=== PATIENT | female | born 1980 | race Caucasian/White ===

== ENCOUNTER 2018-03-28 23:53 | Observation (INO) ==
[2018-03-29] MEDS ORDERED: Isovue-370 500 ML INFUS..BTL IV ONE (03:13)
[2018-03-29] MEDS ORDERED: 0.9 % Sodium Chloride 1,000 ML IVC ONE (03:13)
[2018-03-29] MEDS ORDERED: Ondansetron 4 MG/2 ML VIAL IVP ONE (03:13)
[2018-03-29 03:41] LABS: Bilirubin,Urine Negative (Negative); Blood,Urine Negative (Negative); Clarity,Urine Clear (Clear); Color,Urine Yellow (Yellow); Glucose,Urine (UA) Normal (Normal); Ketones,Urine 15 mg/dL (Negative); Leukocyte Esterase,Urine Negative (Negative); Nitrite,Urine Negative (Negative); PH,Urine 5.5 pH Units (5.0-8.0); Protein,Urine 30 mg/dL (Neg-Trace); Specific Gravity,Urine 1.028 (1.010-1.025); Urobilinogen,Urine Normal (Normal)
[2018-03-29 03:44] LABS: Bacteria,Urine Few per hpf (None-Few); Hyaline Casts,Urine None Seen per lpf (None-Few); RBC,Urine 0-3 per hpf (0-3); Squamous Epithelial Cell,Urine Many per lpf (None-Few); WBC,Urine 0-3 per hpf (0-3)
[2018-03-29] MEDS ORDERED: *HR* Promethazine 25 MG/ML VIAL IVP ONE (03:50)
[2018-03-29 04:07] LABS: Basophils % 0.3 %; Eosinophils # 0.3 K/mcL (0.0-0.6); Eosinophils % 1.9 %; Hematocrit 44.6 % (35.3-44.9); Hemoglobin 15.3 g/dL (11.5-15.4); Immature Granulocytes % 0.2 % (0-4); Lymphocytes # 1.7 K/mcL (0.6-4.6); Lymphocytes % 12.4 %; Mean Corpuscular HGB Conc 34.3 g/dL (31.6-35.5); Mean Corpuscular Hemoglobin 29.5 pg (28.0-33.3); Mean Corpuscular Volume 85.9 fL (83.0-100.0); Mean Platelet Volume 10.5 fL (9.4-12.4); Monocytes # 0.9 K/mcL (0.0-1.3); Monocytes % 6.3 %; Neutrophils # 10.6 K/mcL (1.6-8.9); Platelet Count 279 K/mcL (140-400); Red Blood Count 5.19 M/mcL (3.82-4.97); Red Cell Distribution Width 12.5 % (11.5-14.5); Segmented Neutrophils % 78.9 %
[2018-03-29 04:19] LABS: Alanine Aminotransferase 16 Units/L (7-52); Albumin 4.2 g/dL (3.5-5.7); Albumin/Globulin Ratio 1.4 (1.1-2.2); Alkaline Phosphatase 102 Units/L (34-104); Aspartate Amino Transferase 18 Units/L (13-39); BUN/Creatinine Ratio 14 (6-26); Bilirubin,Total 0.4 mg/dL (0.3-1.0); Blood Urea Nitrogen 10 mg/dL (6-20); Calcium 9.3 mg/dL (8.6-10.3); Carbon Dioxide 25 mEq/L (23-29); Chloride 104 mEq/L (98-107); Glucose 111 mg/dL (70-105); Lipase 30 Units/L (11-82); Osmolality,Calculated 284 (280-300); Potassium 4.2 mEq/L (3.5-5.1); Sodium 137 mEq/L (136-145); Total Protein 7.2 g/dL (6.4-8.9); eGFR For African Americans > 60 (> 60); eGFR For Non-African Americans > 60 (> 60)
--- NOTE | 2018-03-29 04:25 | Emergency Department Note ---
Disposition Clinical Impression: Dehydration Intractable nausea and vomiting Qualifiers: Vomiting type: cyclical vomiting Qualified Code(s): G43.A1 - Cyclical vomiting , intractable Disposition: Admitted As Inpatient Condition: Fair Referrals: Vimal Jaime [Primary Care Provider] - Forms: ED Satisfaction Letter Time of Disposition: 06:57 Nausea/Vomiting/Diarrhea HPI - General Chief complaint: ED Nausea/Vomiting/Diarrhea Stated complaint: N/V Time Seen by Provider: 03/29/18 02:48 Source: patient Limitations: no limitations Nursing Notes Reviewed: Yes Vital Signs Reviewed: Yes - History of Present Illness HPI Narrative: Patient is a 37-year-old female who presents to [facility] ED with a chief complaint of intractable nausea vomiting. Patient has also had some diarrhea over the course of several months. She is currently being worked up by her primary care physician and getting testing done for possible lactose intolerance. States the nausea and vomiting has been ongoing intermittently for the last several weeks and she was prescribed Zofran. However it has not been helping. Today she has not been able to stop vomiting. Pt Subjective Complaint: nausea, vomiting, diarrhea Onset (ago): week(s) Associated Abdominal Pain: No Associated symptoms: Reports: nausea/vomiting. Denies: chest pain, cough, fever /chills, headaches, shortness of breath, weakness - Related Data Home Medications Medication Instructions Recorded Confirmed Estrogens, Conjugated [Premarin] 1.25 mg PO HS 03/29/18 03/29/18 Venlafaxine HCl [Venlafaxine HCl 150 mg PO 03/29/18 03/29/18 ER] Venlafaxine [Effexor] 200 mg PO HS 03/29/18 03/29/18 Ziprasidone HCl [Ziprasidone HCl] 20 mg PO HS 03/29/18 03/29/18 clonazePAM [Klonopin] 0.5 mg PO HS 03/29/18 03/29/18 Allergies Allergy/AdvReac Type Severity Reaction Status Date / Time Penicillins Allergy SWELLING Verified 03/29/18 06:56 prednisone Allergy SWELLING Verified 03/29/18 06:56 All systems ED: reviewed and negative except as stated. Past Medical History - Past Medical History Attestation: Yes The following information was validated with the patient. Source: patient Medical history: Reports: non-contributory, other Psychiatric history: Reports: anxiety, bipolar, depression - Social History Smoking Status: Never smoker Smokeless Tobacco Status: No Alcohol use: Reports: none Drug use: Reports: none Physical Exam - General Limitations: no limitations General appearance: alert - Head Head exam: atraumatic, normocephalic, normal inspection - Eye Eye exam: Present: normal appearance, PERRL, EOMI - ENT ENT exam: normal exam, normal oropharynx, mucous membranes moist - Neck Neck exam: Present: normal inspection, full ROM, trachea midline - Chest Chest inspection: Present: normal inspection, symmetric chest wall rise - Respiratory Respiratory exam: Present: normal lung sounds bilaterally - Cardiovascular Cardiovascular exam: Present: normal rhythm, tachycardia, normal heart sounds - Abdominal Exam Abdominal exam: Present: soft, Non-Tender. Absent: tenderness, distention, guarding, rebound, rigidity - Extremities Exam Extremities exam: Present: normal inspection, full ROM. Absent: tenderness, pedal edema - Back Exam Back exam: Present: normal inspection, full ROM. Absent: tenderness - Neurological Exam Neurological exam: Present: alert, oriented X3 - Psychiatric Psychiatric exam: Present: normal affect, normal mood - Skin Skin exam: Present: warm, dry, intact, normal color Course Course Narrative: Patient seen and examined. Intractable nausea and vomiting. Patient has tried Zofran at home. This has not been helping. We will try some Phenergan here. We will also get some basic lab work and CT abdomen and pelvis to rule out any abdominal pathology. - Reevaluation(s) Reevaluation #1: Patient's lab work shows signs of concentrated urine suggesting some mild dehydration. Her lab work otherwise shows a mild leukocytosis. Otherwise unremarkable. Patient still feeling extremely nauseated. She was given a dose of Reglan and Benadryl to see if this helps. Time: 04:30 Reevaluation #2: Patient still complaining of nausea and is actively vomiting. We will get an EKG to rule out any signs of prolonged QT and then try Haldol. Time: 06:00 Reevaluation #3: Patient still feeling extremely nauseated. We will admit for intractable nausea and vomiting. Time: 06:31 Vital Signs Temperature 98.2 F 03/29/18 00:30 Pulse Rate 141 03/29/18 00:30 Respiratory Rate 18 03/29/18 00:30 Blood Pressure 144/97 03/29/18 00:30 O2 Sat by Pulse Oximetry 96 03/29/18 00:30 Temperature 98.2 F 03/29/18 00:30 Pulse Rate 102 03/29/18 04:26 Respiratory Rate 16 03/29/18 04:26 Blood Pressure 112/75 03/29/18 04:26 O2 Sat by Pulse Oximetry 97 03/29/18 04:26 Oxygen Delivery Oxygen Delivery Room Air Nausea/Vomiting/Diarrhea - Medical Records Medical records reviewed: Yes I reviewed the patient's medical records. - Lab Data Lab results reviewed: Yes I reviewed the patient's lab results. Result diagrams: 03/29/18 03:50 03/29/18 03:50 Lab Results 03/29/18 03/29/18 03/29/18 Range/Units 03:33 03:50 03:50 WBC 13.4 H (4.3-11.1) K/mcL RBC 5.19 H (3.82-4.97) M/mcL Hgb 15.3 (11.5-15.4) g/dL Hct 44.6 (35.3-44.9) % MCV 85.9 (83.0-100.0) fL MCH 29.5 (28.0-33.3) pg MCHC 34.3 (31.6-35.5) g/dL RDW 12.5 (11.5-14.5) % Plt Count 279 (140-400) K/mcL MPV 10.5 (9.4-12.4) fL Immature Gran % 0.2 (0-4) % Seg Neutrophils % 78.9 % Lymphocytes % 12.4 % Monocytes % 6.3 % Eosinophils % 1.9 % Basophils % 0.3 % Neutrophils # 10.6 H (1.6-8.9) K/mcL Lymphocytes # 1.7 (0.6-4.6) K/mcL Monocytes # 0.9 (0.0-1.3) K/mcL Eosinophils # 0.3 (0.0-0.6) K/mcL Basophils # 0.0 (0.0-0.2) K/mcL Sodium 137 (136-145) mEq/L Potassium 4.2 (3.5-5.1) mEq/L Chloride 104 (98-107) mEq/L Carbon Dioxide 25 (23-29) mEq/L BUN 10 (6-20) mg/dL Creatinine 0.73 (0.60-1.20) mg/dL Est GFR ( Amer) > 60 (> 60) Est GFR (Non-Af Amer) > 60 (> 60) BUN/Creatinine Ratio 14 (6-26) Glucose 111 H (70-105) mg/dL Calculated Osmolality 284 (280-300) Calcium 9.3 (8.6-10.3) mg/dL Total Bilirubin 0.4 (0.3-1.0) mg/dL AST 18 (13-39) Units/L ALT 16 (7-52) Units/L Alkaline Phosphatase 102 (34-104) Units/L Serum Total Protein 7.2 (6.4-8.9) g/dL Albumin 4.2 (3.5-5.7) g/dL Globulin 3.0 (2.4-3.5) g/dL Albumin/Globulin Ratio 1.4 (1.1-2.2) Lipase 30 (11-82) Units/L Urine Color Yellow (Yellow) Urine Clarity Clear (Clear) Urine pH 5.5 (5.0-8.0) pH Units Ur Specific [place] 1.028 H (1.010-1.025) Urine Protein 30 H (Neg-Trace) mg/dL Urine Glucose (UA) Normal (Normal) mg/dL Urine Ketones 15 H (Negative) mg/dL Urine Blood Negative (Negative) Urine Nitrite Negative (Negative) Urine Bilirubin Negative (Negative) Urine Urobilinogen Normal (Normal) mg/dL Ur Leukocyte Esterase Negative (Negative) Urine Microscopic RBC 0-3 (0-3) per hpf Urine Microscopic WBC 0-3 (0-3) per hpf Ur Squamous Epith Cells Many H (None-Few) per lpf Urine Bacteria Few (None-Few) per hpf Hyaline Casts None Seen (None-Few) per lpf Ur Culture Indicated? NO (NO) - Radiology Data Radiology results reviewed: Yes I reviewed the patient's radiology results. Abdomen/Pelvis CT 03/29/18 03:13 IMPRESSION: No acute process identified. D/ / Foster Tucker MD / Foster Tucker MD Interpreting Provider: Foster Tucker MD - EKG Data EKG attestation: Yes I reviewed and interpreted this EKG. EKG results narrative: EKG done at 605 shows sinus tachycardia with a rate of [address] elevation or depression noted. Left axis deviation. QTc interval at 404 ms.
[2018-03-29] MEDS ORDERED: Metoclopramide 10 MG/2 ML VIAL IVP ONE (04:26)
[2018-03-29] MEDS ORDERED: Haloperidol Lactate 5 MG/ML VIAL IVP ONE (06:07)
--- NOTE | 2018-03-29 07:03 | Emergency Department Note ---
Disposition Clinical Impression: Dehydration Intractable nausea and vomiting Qualifiers: Vomiting type: cyclical vomiting Qualified Code(s): G43.A1 - Cyclical vomiting , intractable Disposition: Admitted As Inpatient Condition: Fair Referrals: Vimal Jaime [Primary Care Provider] - Forms: ED Satisfaction Letter General Adult HPI - General Chief complaint: ED Nausea/Vomiting/Diarrhea Stated complaint: N/V Time Seen by Provider: 03/29/18 02:48 Source: patient Limitations: no limitations Nursing Notes Reviewed: Yes Vital Signs Reviewed: Yes - History of Present Illness Pain Scale: 5 - Related Data Home Medications Medication Instructions Recorded Confirmed Estrogens, Conjugated [Premarin] 1.25 mg PO HS 03/29/18 03/29/18 Venlafaxine HCl [Venlafaxine HCl 150 mg PO HS 03/29/18 03/29/18 ER] Venlafaxine [Effexor] 75 mg PO HS 03/29/18 03/29/18 Ziprasidone HCl [Ziprasidone HCl] 20 mg PO HS 03/29/18 03/29/18 clonazePAM [Klonopin] 0.5 mg PO HS 03/29/18 03/29/18 Allergies Allergy/AdvReac Type Severity Reaction Status Date / Time Penicillins Allergy SWELLING Verified 03/29/18 06:56 prednisone Allergy SWELLING Verified 03/29/18 06:56 Past Medical History - Past Medical History Medical history: Reports: non-contributory, other Psychiatric history: Reports: anxiety, bipolar, depression - Social History Smoking Status: Never smoker Smokeless Tobacco Status: No Alcohol use: Reports: none Drug use: Reports: none Physical Exam - General Limitations: no limitations General appearance: alert Course Vital Signs Temperature 98.2 F 03/29/18 00:30 Pulse Rate 141 03/29/18 00:30 Respiratory Rate 18 03/29/18 00:30 Blood Pressure 144/97 03/29/18 00:30 O2 Sat by Pulse Oximetry 96 03/29/18 00:30 Temperature 98.2 F 03/29/18 00:30 Pulse Rate 102 03/29/18 04:26 Respiratory Rate 16 03/29/18 04:26 Blood Pressure 112/75 03/29/18 04:26 O2 Sat by Pulse Oximetry 97 03/29/18 04:26 Oxygen Delivery Oxygen Delivery Room Air Medical Decision Making - Lab Data Result diagrams: 03/29/18 03:50 03/29/18 03:50 Lab Results 03/29/18 03/29/18 03/29/18 Range/Units 03:33 03:50 03:50 WBC 13.4 H (4.3-11.1) K/mcL RBC 5.19 H (3.82-4.97) M/mcL Hgb 15.3 (11.5-15.4) g/dL Hct 44.6 (35.3-44.9) % MCV 85.9 (83.0-100.0) fL MCH 29.5 (28.0-33.3) pg MCHC 34.3 (31.6-35.5) g/dL RDW 12.5 (11.5-14.5) % Plt Count 279 (140-400) K/mcL MPV 10.5 (9.4-12.4) fL Immature Gran % 0.2 (0-4) % Seg Neutrophils % 78.9 % Lymphocytes % 12.4 % Monocytes % 6.3 % Eosinophils % 1.9 % Basophils % 0.3 % Neutrophils # 10.6 H (1.6-8.9) K/mcL Lymphocytes # 1.7 (0.6-4.6) K/mcL Monocytes # 0.9 (0.0-1.3) K/mcL Eosinophils # 0.3 (0.0-0.6) K/mcL Basophils # 0.0 (0.0-0.2) K/mcL Sodium 137 (136-145) mEq/L Potassium 4.2 (3.5-5.1) mEq/L Chloride 104 (98-107) mEq/L Carbon Dioxide 25 (23-29) mEq/L BUN 10 (6-20) mg/dL Creatinine 0.73 (0.60-1.20) mg/dL Est GFR ( Amer) > 60 (> 60) Est GFR (Non-Af Amer) > 60 (> 60) BUN/Creatinine Ratio 14 (6-26) Glucose 111 H (70-105) mg/dL Calculated Osmolality 284 (280-300) Calcium 9.3 (8.6-10.3) mg/dL Total Bilirubin 0.4 (0.3-1.0) mg/dL AST 18 (13-39) Units/L ALT 16 (7-52) Units/L Alkaline Phosphatase 102 (34-104) Units/L Serum Total Protein 7.2 (6.4-8.9) g/dL Albumin 4.2 (3.5-5.7) g/dL Globulin 3.0 (2.4-3.5) g/dL Albumin/Globulin Ratio 1.4 (1.1-2.2) Lipase 30 (11-82) Units/L Urine Color Yellow (Yellow) Urine Clarity Clear (Clear) Urine pH 5.5 (5.0-8.0) pH Units Ur Specific [place] 1.028 H (1.010-1.025) Urine Protein 30 H (Neg-Trace) mg/dL Urine Glucose (UA) Normal (Normal) mg/dL Urine Ketones 15 H (Negative) mg/dL Urine Blood Negative (Negative) Urine Nitrite Negative (Negative) Urine Bilirubin Negative (Negative) Urine Urobilinogen Normal (Normal) mg/dL Ur Leukocyte Esterase Negative (Negative) Urine Microscopic RBC 0-3 (0-3) per hpf Urine Microscopic WBC 0-3 (0-3) per hpf Ur Squamous Epith Cells Many H (None-Few) per lpf Urine Bacteria Few (None-Few) per hpf Hyaline Casts None Seen (None-Few) per lpf Ur Culture Indicated? NO (NO) Attestation Statement - Attestation Attestation: I, Jordan Downs MD, personally evaluated this patient and discussed their management with the resident physician. I reviewed the resident's note and agree with the documented findings, medical decision making, and plan of care. 37-year-old female presents to the emergency department with a complaint of nausea vomiting and diarrhea that started more than a week ago. He nausea and vomiting resolved after a few days but the diarrhea has continued. Tonight the nausea and vomiting returned. She has tried Zofran with no relief. No GI bleed symptoms. On examination patient is a well-developed obese female in no acute distress. She is alert and oriented 3. There is no cyanosis or diaphoresis. Breath sounds are clear and equal bilaterally. Heart regular rate and rhythm. Abdomen is soft with minimal mid abdominal tenderness. Slightly increased bowel sounds. Labs reviewed and unremarkable. CT the abdomen and pelvis negative. Patient received IV fluids with IV Zofran, IV Phenergan, IV Benadryl, IV Reglan , and IV Haldol. She continued to have nausea and vomiting. The hospitalist, Dr. Carrillo, was consulted and accepted admission of the patient for intractable vomiting.
[2018-03-29 07:10] LABS: Amphetamine Screen,Urine Negative ng/mL (Cutoff=1000); Barbiturate Screen,Urine Negative ng/mL (Cutoff=200); Benzodiazepines Screen,Urine Negative ng/mL (Cutoff=200); Cannabinoid Screen,Urine Negative ng/mL (Cutoff = 50); Cocaine Screen,Urine Negative ng/mL (Cutoff= 300); Opiate Screen,Urine Negative ng/mL (Cutoff=300); Phencyclidine Screen,Urine Negative ng/mL (Cutoff=25)
[2018-03-29] MEDS: *HR* Promethazine 25 MG/ML VIAL IVP PRN ×2 (08:54→21:51)
[2018-03-29] MEDS ORDERED: 0.9 % Sodium Chloride 1,000 ML ONE (09:44)
[2018-03-29] MEDS: 0.9 % Sodium Chloride 1,000 ML IVC SCH ×2 (09:50→22:00)
[2018-03-29] MEDS ORDERED: Ibuprofen 800 MG TABLET PO PRN (09:55)
[2018-03-29 11:09] LABS: Thyroid Stimulating Hormone 0.774 mcIU/mL (0.340-5.600)
[2018-03-29] MEDS ORDERED: Polyethylene Glycol 3350 255 GM POWDER PO ONE (12:21)
--- NOTE | 2018-03-29 12:30 | Gastroenterology Consult Note ---
Date of Encounter: 03/30/18 Time of Encounter: 10:05 - Assessment and plan (1) Intractable nausea and vomiting Current Visit: Yes Status: Acute Assessment and plan: CT and labs were normal will proceed with EGD tomorrow to rule out PUD, gastroparesis or other causes of intractable nausea. Will add PPI, continue antiemetics. Qualifiers: Vomiting type: cyclical vomiting Qualified Code(s): G43.A1 - Cyclical vomiting, intractable (2) Diarrhea Current Visit: Yes Status: Acute Assessment and plan: Will check stool studies to rule out infectious origin, pancreatic insufficiency and IBD. Will also plan for colonoscopy tomorrow to rule out microcytic cause of diarrhea. Qualifiers: Diarrhea type: functional diarrhea Qualified Code(s): K59.1 - Functional diarrhea - Time Spent With Patient Total time spent is greater than 50% in coordination of care (as documented) at patient's floor/unit and/or counseling patient: GI History of Present Illness - Data of Consult Patient: new to practice Consult date: 03/29/18 Requesting Physician: Isauro Carrillo MD - Consult Narrative Reason for consult: nausea/vomiting diarrhea History of present illness: Ms Judd is a 37-year-old female presents to the emergency department with a complaint of nausea vomiting and diarrhea. She states diarrhea has been persistent for the past 4-5 months and she has had nausea the past month. She states she felt better for a few days but has gotten worse again. She has GI panel ordered as an outpatient but stool was formed at that time. She has tried Zofran with no relief. Labs were unremarkable. CT the abdomen and pelvis negative. Patient received IV fluids with IV Zofran, IV Phenergan, IV Benadryl, IV Reglan, and IV Haldol. She continued to have nausea and vomiting. The hospitalist, Dr. Carrillo, was consulted and accepted admission of the patient for intractable vomiting. She denies bloody or tarry stools. She denies fever but has chills. she denies GERD but states she has abdominal cramping. She denies use of PPI at home. She has tried immodium with no relief of diarrhea. She states nausea is worse with eating, and she has diarrhea every time she eats. She denies any recent antibiotics. Colonoscopy 2008: normal( per pt0 denies EGD No nsaids, asa or anticoagulants Past Med Surg Social Fam HX - Past Medical History Medical history: non-contributory, other Additional medical history: anemia, gerd. frequent diarrhea Psychiatric history: anxiety, bipolar, depression - Past Surgical History Additional surgical history: tubal, hysterectomy - Social History Smoking Status: Never smoker Smokeless Tobacco Status: No Alcohol use: none Drug use: none Review of Systems: GI: as per [facility] GENERAL: denies fever, has some chills EYES: denies yellow discoloration ENT: denies pain with swallowing or difficulty swallowing CARDIO: denies chest pain, palpitations RESP: No Shortness of breath with exertion : denies change in color of urine NEURO: denies any weakness HEME: Denies any bruising MS: denies joint pain, joint swelling or back pain. DERM: denies rash or itching PSYCH: Denies history of anxiety or depression - Constitutional Vitals: Temp Pulse Resp BP Pulse Ox 98.7 F 109 14 121/86 94 03/29/18 09:34 03/29/18 09:34 03/29/18 09:34 03/29/18 09:34 03/29/18 09:34 - Head Additional comments: CONSTITUTIONAL:~alert, no acute distress.~HEAD:~normocephalic.~EYES:~no jaundice.~NECK:~no obvious swelling.~HEART:~regular rate and rhythm, no murmurs. ~LUNGS:~bilateral good air entry.~ABDOMEN:~non distended, soft, diffusely tender , no masses palpable, no organomegaly.~RECTAL EXAM:~Deferred.~EXTREMITIES:~no clubbing, cyanosis or edema.~SKIN:~no stigmata of chronic liver disease.~ NEUROLOGIC:~no obvious focal defect.~~~~ Results - Labs CBC & Chem 7: 03/30/18 05:45 03/30/18 05:45 Labs: Last Result Calcium 9.3 mg/dL (8.6-10.3) 03/29/18 03:50 Urine Opiates Screen Negative ng/mL (Zqtflm=143) 03/29/18 03:33 Entire Visit Hgb 15.3 g/dL (11.5-15.4) 03/29/18 03:50 Hct 44.6 % (35.3-44.9) 03/29/18 03:50 Total Bilirubin 0.4 mg/dL (0.3-1.0) 03/29/18 03:50 AST 18 Units/L (13-39) 03/29/18 03:50 ALT 16 Units/L (7-52) 03/29/18 03:50 Lipase 30 Units/L (11-82) 03/29/18 03:50 Consult Discharge Plan - Plan Referrals: Vimal Jaime [Primary Care Provider] -
--- NOTE | 2018-03-29 14:08 | Internal Med History&Physical ---
Date of Encounter: 03/29/18 Time of Encounter: 08:00 Internal Medicine - H&P: HPI Chief complaint: Nausea/vomiting/diarrhea Admitted From: Home Plans for Post Hospital Care: Home History of present illness: Patient is a 37-year-old female with past medical history significant for mood disorder who presents to the ER on 03/29/18 due to nausea/vomiting/diarrhea. Patient reports that she has had diarrhea for approximately 4-5 months and has had nausea and vomiting for approximately one month. Patient reports she is currently being worked up by primary care provider as an outpatient. She states that she has lost approximately 11 pounds in the last 2 months. She decided to come to the ER for evaluation. In the ER, labs were unremarkable other than a white blood cell count 13.4. CT of the abdomen/pelvis showed no acute findings. The ER, patient was given IV Benadryl, IV Haldol, IV Phenergan and IV Reglan with minimal relief in symptoms. She was admitted for intractable nausea and vomiting in addition to diarrhea. Past Med Surg Social Fam HX - Past Medical History Medical history: non-contributory, other Additional medical history: anemia, gerd. frequent diarrhea Psychiatric history: anxiety, bipolar, depression - Past Surgical History Additional surgical history: tubal, hysterectomy - Social History Smoking Status: Never smoker Smokeless Tobacco Status: No Alcohol use: none Drug use: none - Additional Family History Additional family history: Noncontributory Internal Medicine - H&P: Meds Estrogens, Conjugated [Premarin] 1.25 mg PO HS 03/29/18 [History] Venlafaxine HCl [Venlafaxine HCl ER] 150 mg PO HS 03/29/18 [History] Venlafaxine [Effexor] 75 mg PO HS 03/29/18 [History] Ziprasidone HCl [Ziprasidone HCl] 20 mg PO HS 03/29/18 [History] clonazePAM [Klonopin] 0.5 mg PO HS 03/29/18 [History] 3 Allergy/AdvReac Type Severity Reaction Status Date / Time Penicillins Allergy SWELLING Verified 03/29/18 06:56 prednisone Allergy SWELLING Verified 03/29/18 06:56 All Systems PM: A 10-system review of systems was performed and is negative for pertinent findings except as documented above in the HPI. - Constitutional Vitals: Temp Pulse Resp BP Pulse Ox 98.7 F 109 14 121/86 94 03/29/18 09:34 03/29/18 09:34 03/29/18 09:34 03/29/18 09:34 03/29/18 13:40 General appearance: Present: A&O X 3, no acute distress - Eye Eye exam: Present: normal appearance - ENT ENT exam: Present: mucous membranes moist - Respiratory Respiratory exam: Present: CTAB. Absent: accessory muscle use, rales, rhonchi, wheezes - Cardiovascular Cardiovascular exam: Present: RRR, +S1, +S2. Absent: diastolic murmur, gallop, rubs, systolic murmur - GI/Abdominal GI/Abdominal exam: Present: normal bowel sounds, soft, no peritoneal signs. Absent: distended, tenderness - Extremities Exam Extremities exam: Absent: pedal edema - Neurological Exam Neurological exam: Present: oriented X3 - Psychiatric Psychiatric exam: Present: normal mood - Skin Skin exam: Present: normal color Internal Med - H&P Results - Labs CBC & Chem 7: 03/29/18 03:50 03/29/18 03:50 - Assessment and plan (1) Diarrhea Current Visit: Yes Status: Acute Assessment and plan: Patient reports that she has had diarrhea for approximately 4-5 months and has had nausea and vomiting for approximately one month. Abdominal CT showed no acute findings; stool cultures ordered GI consulted and appreciate recommendations Qualifiers: Diarrhea type: unspecified type Qualified Code(s): R19.7 - Diarrhea, unspecified (2) Intractable nausea and vomiting Current Visit: Yes Status: Acute Assessment and plan: In the ER, patient was given IV Benadryl, IV Haldol, IV Phenergan and IV Reglan with minimal relief in symptoms. She will be given IV Phenergan as needed and GI consulted as above Qualifiers: Vomiting type: cyclical vomiting Qualified Code(s): G43.A1 - Cyclical vomiting, intractable (3) Mood disorder Current Visit: Yes Status: Acute Assessment and plan: Continue home medications (4) DVT prophylaxis Current Visit: Yes Status: Acute Assessment and plan: Subcutaneous heparin - Time Spent With Patient Total time spent is greater than 50% in coordination of care (as documented) at patient's floor/unit and/or counseling patient:
[2018-03-29] MEDS ORDERED: Naloxone 0.4 MG/ML INJ IVP PRN (14:15)
--- NOTE | 2018-03-29 16:21 | Electrocardiograph Report ---
[address] [place], [place] [address] Test Date: 2018-03-29 Pat Name: Sanaz Leger Department: 104 Room: 3A48 Gender: F Fixed Route Operator: DEB : 1980 Requested By: Fay Recio Order Number: [id number] Reading MD: Shahla Ren Measurements Intervals [place] Rate: 100 P: 5 [place]: 146 QRS: -24 QRSD: 86 T: 9 QT: 347 QTc: 404 Interpretive Statements SINUS TACHYCARDIA BORDERLINE LEFT AXIS DEVIATION ABNORMAL RHYTHM ECG Electronically Signed On 03-29-2018 16:20:28 EDT by Shahla Ren
--- NOTE | 2018-03-29 16:27 | Electrocardiograph Report ---
[address] [place], [place] [address] Test Date: 2018-03-29 Pat Name: Sanaz Leger Department: 102 Room: 3A48 Gender: Reporting Developer: Jacque : 1980 Requested By: Jordan Downs Order Number: [id number] Reading MD: Shahla Ren Measurements Intervals [place] Rate: 136 P: 29 [place]: 133 QRS: -14 QRSD: 88 T: 34 QT: 303 QTc: 383 Interpretive Statements SINUS TACHYCARDIA Electronically Signed On 03-29-2018 16:25:59 EDT by Shahla Ren
[2018-03-29] MEDS: clonazePAM 0.5 MG TABLET PO SCH (21:52)
[2018-03-29] MEDS: Ziprasidone 20 MG CAPSULE PO SCH (21:52)
[2018-03-29] MEDS: *HR* Heparin 5,000 UNIT/ML VIAL SQ SCH (21:52)
[2018-03-29] MEDS: Venlafaxine XR (24 HR) 150 MG CAP.ER.24H PO SCH (21:52)
[2018-03-30] MEDS: *HR* Heparin 5,000 UNIT/ML VIAL SQ SCH ×3 (05:03→20:48)
[2018-03-30 06:25] LABS: Basophils % 0.5 %; Eosinophils # 0.3 K/mcL (0.0-0.6); Hematocrit 36.3 % (35.3-44.9); Immature Granulocytes % 0.2 % (0-4); Lymphocytes # 2.3 K/mcL (0.6-4.6); Lymphocytes % 39.9 %; Mean Corpuscular HGB Conc 33.6 g/dL (31.6-35.5); Mean Corpuscular Volume 86.2 fL (83.0-100.0); Mean Platelet Volume 10.5 fL (9.4-12.4); Monocytes # 0.5 K/mcL (0.0-1.3); Monocytes % 8.1 %; Neutrophils # 2.7 K/mcL (1.6-8.9); Platelet Count 208 K/mcL (140-400); Red Blood Count 4.21 M/mcL (3.82-4.97); Red Cell Distribution Width 12.9 % (11.5-14.5); Segmented Neutrophils % 46.3 %
[2018-03-30 06:30] LABS: Hemoglobin 12.2 g/dL (11.5-15.4)
[2018-03-30 06:46] LABS: BUN/Creatinine Ratio 10 (6-26); Blood Urea Nitrogen 6 mg/dL (6-20); Calcium 8.5 mg/dL (8.6-10.3); Carbon Dioxide 25 mEq/L (23-29); Chloride 108 mEq/L (98-107); Glucose 88 mg/dL (70-105); Osmolality,Calculated 285 (280-300); Potassium 3.3 mEq/L (3.5-5.1); Sodium 139 mEq/L (136-145); eGFR For African Americans > 60 (> 60); eGFR For Non-African Americans > 60 (> 60)
--- NOTE | 2018-03-30 08:43 | Internal Med Progress Note ---
Date of Encounter: 03/30/18 Time of Encounter: 08:41 - Assessment and plan (1) Intractable nausea and vomiting Current Visit: Yes Status: Resolved Assessment and plan: Resolved at this time. GI consulted; appreciate input. Plan for EGD today. Continue anti-emetics PRN. Follow up on stool studies. Qualifiers: Vomiting type: cyclical vomiting Qualified Code(s): G43.A1 - Cyclical vomiting, intractable (2) Diarrhea Current Visit: Yes Status: Acute Assessment and plan: Patient reports that she has had diarrhea for approximately 4-5 months and has had nausea and vomiting for approximately one month. Abdominal CT showed no acute findings. Stool studies pending. GI consulted; appreciate input. EGD scheduled for today. Trial of diet after EGD. Qualifiers: Diarrhea type: functional diarrhea Qualified Code(s): K59.1 - Functional diarrhea (3) Mood disorder Current Visit: Yes Status: Chronic Assessment and plan: Continue home medications. (4) DVT prophylaxis Current Visit: Yes Status: Acute Assessment and plan: Continue SQ heparin. - Time Spent With Patient Total time spent is greater than 50% in coordination of care (as documented) at patient's floor/unit and/or counseling patient: less than 15 minutes - Subjective Interval history: Patient had no acute events overnight. She states that she has no nausea or vomiting at this times. She denies abdominal pain. She denies fever or chills. Stomach is "gurgling." She is in good spirits and has no other complaints at this time. - Constitutional Vitals: Temp Pulse Resp BP Pulse Ox 97.4 F L 72 16 123/77 95 03/30/18 06:23 03/30/18 06:23 03/30/18 06:23 03/30/18 06:23 03/30/18 08:15 General appearance: Present: cooperative, A&O X 3, pleasant, no acute distress, answers questions appropriately - Respiratory Respiratory exam: Present: CTAB. Absent: accessory muscle use, rales, rhonchi, wheezes Additional comments: Normal WOB - Cardiovascular Cardiovascular exam: Present: RRR, +S1, +S2. Absent: diastolic murmur, gallop, rubs, systolic murmur Additional comments: No BLE edema - GI/Abdominal GI/Abdominal exam: Present: normal bowel sounds, soft. Absent: distended, hepatomegaly, mass, splenomegaly, tenderness - Psychiatric Psychiatric exam: Present: normal affect, normal mood. Absent: agitated, anxious, depressed - Skin Skin exam: Present: dry, intact, warm. Absent: cyanosis, rash Internal Medicine: Result - Labs CBC & Chem 7: 03/30/18 05:45 03/30/18 05:45 Labs: Short CBC 03/30/18 Range/Units 05:45 WBC 5.8 D (4.3-11.1) K/mcL Hgb 12.2 D (11.5-15.4) g/dL Hct 36.3 (35.3-44.9) % Plt Count 208 (140-400) K/mcL Neutrophils # 2.7 (1.6-8.9) K/mcL BMP 03/30/18 05:45 Sodium 139 Potassium 3.3 L Chloride 108 H Carbon Dioxide 25 BUN 6 Creatinine 0.60 Glucose 88 Calcium 8.5 L Consult Discharge Plan - Plan Referrals: Vimal Jaime [Primary Care Provider] -
[2018-03-30] MEDS ORDERED: Lidocaine -MPF 2% 2 ML VIAL ONE (13:54)
[2018-03-30] MEDS ORDERED: Propofol 500 MG/50 ML INFUS..BTL ONE (13:55)
--- NOTE | 2018-03-30 14:21 | Anesthesia Evaluation PreOp ---
Date of Encounter: 03/30/18 Time of Encounter: 14:25 - Past History Planned Operation: EGD/colonoscopy Cardiac History: Denies any Significant Hx Pulmonary History: Denies Any Significant HX [employer] History: Denies Any Significant HX Other Medical History: Denies Any Significant HX Anesthesia History: Past Anesthesia (No anesthetic complication) Test: Negative (hysterectomy) Alcohol Use: none Drug use: none Medications and Allergies Estrogens, Conjugated [Premarin] 1.25 mg PO HS 03/29/18 [History] Venlafaxine HCl [Venlafaxine HCl ER] 150 mg PO HS 03/29/18 [History] Venlafaxine [Effexor] 75 mg PO HS 03/29/18 [History] Ziprasidone HCl [Ziprasidone HCl] 20 mg PO HS 03/29/18 [History] clonazePAM [Klonopin] 0.5 mg PO HS 03/29/18 [History] 3 Allergy/AdvReac Type Severity Reaction Status Date / Time Penicillins Allergy SWELLING Verified 03/29/18 06:56 prednisone Allergy SWELLING Verified 03/29/18 06:56 - Meds/Allergy Pre-op Review Medications Reviewed: Yes Allergies Reviewed: Yes Beta Blockers on Current Med List: No Anesthesia Results - Labs 03/30/18 05:45 03/30/18 05:45 - Imaging EKG: report reviewed Anesthesia Exam Selected Entries 03/30/18 14:18 Temperature 97.9 F Pulse Rate 82 Respiratory Rate 16 Blood Pressure 126/87 O2 Sat by Pulse Oximetry 96 Weight: 113 kg. NPO (# of Hours): over 8 hours - HEENT Pupil (Motor): Pupils equal Mallampati: III Teeth: Normal Oral Opening: Greater than 3 - Cardiac Rhythm: Regular Murmur: None - Pulmonary Breath Sounds: bilateral Clear Respiratory Effort: Symmetrical Anesthesia Assess/Plan ASA Score: 2 Modified Corbett Scale for Level of Consciousness: Cooperative, oriented, and tranquil Anesthetic Plan: MAC Monitoring Plan: Standard Monitors Recovery Plan: Other (Discussed Mac anesthesia, agreed to proceed.)
[2018-03-30] MEDS: Venlafaxine XR (24 HR) 150 MG CAP.ER.24H PO SCH (20:47)
[2018-03-30] MEDS: Ziprasidone 20 MG CAPSULE PO SCH (20:47)
[2018-03-30] MEDS: clonazePAM 0.5 MG TABLET PO SCH (20:48)
[2018-03-30] MEDS: 0.9 % Sodium Chloride 1,000 ML IVC SCH (22:56)
[2018-03-31] MEDS: *HR* Heparin 5,000 UNIT/ML VIAL SQ SCH ×2 (05:12→15:15)
[2018-03-31 06:17] LABS: Basophils % 0.5 %; Eosinophils # 0.3 K/mcL (0.0-0.6); Eosinophils % 4.8 %; Hematocrit 37.8 % (35.3-44.9); Hemoglobin 12.6 g/dL (11.5-15.4); Immature Granulocytes % 0.3 % (0-4); Lymphocytes # 2.3 K/mcL (0.6-4.6); Lymphocytes % 36.4 %; Mean Corpuscular HGB Conc 33.3 g/dL (31.6-35.5); Mean Corpuscular Hemoglobin 28.8 pg (28.0-33.3); Mean Corpuscular Volume 86.3 fL (83.0-100.0); Mean Platelet Volume 10.6 fL (9.4-12.4); Monocytes # 0.5 K/mcL (0.0-1.3); Monocytes % 7.7 %; Neutrophils # 3.2 K/mcL (1.6-8.9); Platelet Count 221 K/mcL (140-400); Red Blood Count 4.38 M/mcL (3.82-4.97); Red Cell Distribution Width 12.8 % (11.5-14.5); Segmented Neutrophils % 50.3 %
[2018-03-31 06:33] LABS: BUN/Creatinine Ratio 7 (6-26); Blood Urea Nitrogen 4 mg/dL (6-20); Calcium 8.8 mg/dL (8.6-10.3); Carbon Dioxide 23 mEq/L (23-29); Chloride 108 mEq/L (98-107); Glucose 87 mg/dL (70-105); Osmolality,Calculated 284 (280-300); Potassium 3.5 mEq/L (3.5-5.1); Sodium 139 mEq/L (136-145); eGFR For African Americans > 60 (> 60); eGFR For Non-African Americans > 60 (> 60)
[2018-03-31 08:21] LABS: Immunoglobulin A (CELIAC) 140 mg/dL (68-408)
[2018-03-31] MEDS ORDERED: Bisacodyl 10 MG RECTAL SUPPOSITORY RC STA (14:34)
--- NOTE | 2018-03-31 14:46 | Discharge Summary ---
- NOTES TO OUTPATIENT PROVIDER Notes to Outpatient Provider: Follow up with PCP in 2-3 days after discharge. Recheck BMP at that time. Follow up with GI in 2-3 weeks as directed. Follow up on biopsy pathology results at that time. Orders not resulted at time of discharge: Pending orders 03/29/18 09:07 Calprotectin, Fecal Routine Pancreatic Elastase, Fecal Routine 03/30/18 15:04 H. pylori Urease Culture [RM] Stat 03/30/18 15:20 Surgical Pathology [PTH] Routine Date of Encounter: 03/31/18 Time of Encounter: 14:39 - Discharge Diagnosis (1) Intractable nausea and vomiting Priority: Primary Status: Resolved Qualifiers: Vomiting type: cyclical vomiting Qualified Code(s): G43.A1 - Cyclical vomiting, intractable (2) Constipation Priority: Secondary Status: Acute Qualifiers: Constipation type: unspecified constipation type Qualified Code(s): K59.00 - Constipation, unspecified (3) Diarrhea Priority: Secondary Status: Acute Qualifiers: Diarrhea type: functional diarrhea Qualified Code(s): K59.1 - Functional diarrhea (4) Mood disorder Priority: Secondary Status: Chronic (5) DVT prophylaxis Priority: Secondary Status: Acute Hospital course: Ms. Leger is a 37 year old female admitted for intractable nausea and vomiting, and diarrhea. She was admitted to general medical floor. IV anti-emetics and PO PPI were started. Stool studies were ordered, but patient would not let nurse collect stool. GI was consulted. They performed EGD and colonoscopy. EGD showed grade A esophagitis, 2 polpys, and mild stomach inflammation. Gastroparesis was suspected due to retained gastric contents. Colonoscopy had to be aborted due to large amount of stool in rectum and sigmoid colon. Internal hemorrhoids were noted. I personally discussed case with GI Dr. Lozano. We agreed that diarrhea is likely secondary to constipation. He recommended bowel cleanout. She will be given one dose of miralax and dulcolax suppository prior to discharge today. She will also be given 7-day prescriptions for omeprazole and miralax. Patient states that she is eating good and wants to go home today. She denies abdominal pain, nausea, and vomiting. She still has some diarrhea. She will follow up with PCP in 2-3 days after discharge. Repeat BMP and CBC can be rechecked at that time. She will follow up with GI in 2-3 weeks as directed. Biopsy pathology results can be followed up on at that time. Patient has met maximum benefit of this hospitalization and will be discharged home in stable condition. Discharge discussed with: patient, nurse, client consultant (GI), other (Pharmacist) - Time Spent with Patient Total time spent providing and/or coordinating discharge services: Greater than 30 minutes - Discharge Medications Prescriptions: Omeprazole [PriLOSEC] 20 mg PO 0630 7 Days #7 capsule. Polyethylene Glycol 3350 [MiraLAX] 17 gm PO DAILY 7 Days #7 powd.pack Home Medications: Estrogens, Conjugated [Premarin] 1.25 mg PO HS 03/29/18 [History] Venlafaxine HCl [Venlafaxine HCl ER] 150 mg PO HS 03/29/18 [History] Venlafaxine [Effexor] 75 mg PO HS 03/29/18 [History] Ziprasidone HCl 20 mg PO HS 03/29/18 [History] clonazePAM [Klonopin] 0.5 mg PO HS 03/29/18 [History] Omeprazole [PriLOSEC] 20 mg PO 0630 7 Days #7 capsule. 03/31/18 [Rx] Polyethylene Glycol 3350 [MiraLAX] 17 gm PO DAILY 7 Days #7 powd.pack 03/31/18 [ Rx] Allergies/Adverse Reactions: 3 Allergy/AdvReac Type Severity Reaction Status Date / Time Penicillins Allergy SWELLING Verified 03/29/18 06:56 prednisone Allergy SWELLING Verified 03/29/18 06:56 Date of admission: 03/29/18 07:18 Primary care physician: Vimal Jaime Consults: 03/29/18 09:11 Consult to Gastroenterology [CONS] Routine Consulting Provider: [facility] [place] Reason for Consult: n/v/diarreah Call Completed: Yes Discharging clinician: Nathan Perry Anticipated date of discharge: 03/31/18 - Constitutional Vitals: Temp Pulse Resp BP Pulse Ox 97.7 F 68 16 120/79 95 03/31/18 11:31 03/31/18 11:31 03/31/18 11:31 03/31/18 11:31 03/31/18 11:31 General appearance: Present: cooperative, A&O X 3, pleasant, no acute distress, obese, answers questions appropriately - Respiratory Respiratory exam: Present: CTAB. Absent: accessory muscle use, rales, rhonchi, wheezes Additional comments: Normal WOB - Cardiovascular Cardiovascular exam: Present: RRR, +S1, +S2. Absent: diastolic murmur, gallop, rubs, systolic murmur Additional comments: No BLE edema - GI/Abdominal GI/Abdominal exam: Present: normal bowel sounds, soft. Absent: distended, hepatomegaly, mass, splenomegaly, tenderness - Psychiatric Psychiatric exam: Present: normal affect, normal mood. Absent: agitated, anxious, depressed - Skin Skin exam: Present: dry, intact, warm. Absent: cyanosis, rash - Patient Status Disposition: Home, Self-Care Condition: Good Functional capacity at discharge: independent ambulation Overall status at discharge: patient is progressing back to baseline - Discharge Instructions Follow Up With: Vimal Jaime [Primary Care Provider] - Additional Instructions: Follow up with PCP in 2-3 days after discharge. Recheck BMP at that time. Follow up with GI in 2-3 weeks as directed. Follow up on biopsy pathology results at that time. - Diet and Activity Activity: resume usual activities as tolerated Diet: advance to your usual diet
[2018-03-31 15:01] VITALS: BP 114/78
[2018-04-01 07:50] LABS: Tissue Transglutaminase IgA 0 U/mL (0-3)
[2018-04-03 18:01] LABS: Pancreatic Elastase, Fecal >500 ug/g (>=201)
[2018-04-04 07:29] LABS: Calprotectin, Fecal 172 ug/g (<=50)
== END 2018-03-31 16:50 | disposition home or self-care (01) ==
LOC: 3ANU 23:53 → EMEROO 23:53 → 3ANU 03-29 08:15
PROVIDERS: ADMIT Internal Medicine; ATTEND Internal Medicine
PROC: ENDOEBX (2018-03-30 13:15)